=== PATIENT | male | born 1960 | race Caucasian/White ===

== ENCOUNTER 2021-10-11 11:42 | Inpatient (IN) | payer BC ==
[~2021-10-11] VITALS: Ht 175.3 cm; Wt 90.9 kg
[2021-10-11] MEDS ORDERED: CEFTRIAXONE 1 G PREMIX 50 ML IV ONE (12:00)
[2021-10-11] MEDS ORDERED: AZITHROMYCIN 500MG/250ML 250 ML IV ONE (12:00)
[2021-10-11] MEDS ORDERED: SODIUM CHLORIDE 0.9% 1000ML BAG (SEPSIS BOLUS) IV ONE (12:00)
[2021-10-11] MEDS ORDERED: VANCOMYCIN 1G PREMIX 200 ML IV ONE (12:00)
[2021-10-11 12:10] LABS: HEMATOCRIT. 37.8 % (42.0-52.0); HEMOGLOBIN. 13.1 g/dL (14.0-18.0); MEAN CORPUSCULAR HEMOGLOBIN 30.6 pg (28.0-32.0); MEAN CORPUSCULAR VOLUME 88.5 fL (80.0-94.0); MEAN PLATELET VOLUME 8.5 fl (7.4-10.4); PLATELET 162 x1000/uL (130-400); RED BLOOD CELL COUNT 4.27 mill/uL (4.7-6.1); RED CELL DISTRIBUTION WIDTH 13.1 % (11.6-14.6)
[2021-10-11 12:25] LABS: CHLORIDE 90 mEq/L (98-107)
[2021-10-11 12:32] LABS: PLATELET ESTIMATE NORMAL
[2021-10-11 12:34] LABS: ETHANOL BLOOD < 10 mg/dL
[2021-10-11 12:55] LABS: BG BASE EXCESS -5.8 mmol/L (-2.0-2.0); BG CARBOXYHEMOGLOBIN 0.6 % (0.5-1.5); BG DEOXYHEMOGLOBIN 1.6 % (0.0-5.0); BG FRACTION INSPIRED OXYGEN 36; BG HCO3 ACT 17.3 mmol/L (22.0-26.0); BG METHEMOGLOBIN 0.3 % (0.0-1.5); BG OXYGEN SATURATION 98.4 % (92.0-98.5); BG OXYHEMOGLOBIN 97.5 % (94.0-97.0); BG PCO2 27.8 mmHg (35.0-45.0); BG PH 7.413 (7.350-7.450); BG PO2 124.3 mmHg (75.0-100.0); BG TOTAL HEMOGLOBIN 12.8 g/dL (12.0-18.0); BG VENT MODE NASAL CANNULA
[2021-10-11 13:47] LABS: INR 1.2; PROTHROMBIN TIME 12.5 sec (9.6-11.0)
[2021-10-11] MEDS ORDERED: VANCOMYCIN 1G PREMIX 200 ML IV SCH (15:15)
[2021-10-11] MEDS ORDERED: AZITHROMYCIN 500MG/250ML 250 ML IV NR (15:15)
[2021-10-11] MEDS ORDERED: LORAZEPAM 2MG/ML CPJ IV ONE ×4 (16:30→22:45)
[2021-10-11] MEDS ORDERED: ACETAMINOPHEN 650MG SUPP PR ONE (17:00)
[2021-10-11] MEDS ORDERED: SODIUM CHLORIDE 0.9% 1,000 ML IV ONE (17:15)
[2021-10-11] MEDS ORDERED: DILTIAZEM HCL 5MG/ML 5ML VIAL IV ONE (18:00)
[2021-10-11] MEDS ORDERED: MIDAZOLAM HCL 2 MG/2 ML VIAL IV ONE (19:00)
[2021-10-11] MEDS ORDERED: PHENYLEPHRINE 100 MG in DEXT 5% WATER 240 ML IV STA (19:29)
[2021-10-11] MEDS ORDERED: PHENYLEPHRINE 100 MG in DEXT 5% WATER 240 ML IV NR (19:45)
[2021-10-11] MEDS ORDERED: AMIODARONE HCL IV NR (21:15)
[2021-10-11] MEDS ORDERED: WATER IV NR (21:15)
[2021-10-11] MEDS ORDERED: DEXT 5% IV NR (21:15)
[2021-10-11] MEDS ORDERED: NALOXONE HCL 0.4MG/ML VIAL IV PRN (22:00)
[2021-10-11] MEDS ORDERED: LORAZEPAM 2MG/ML CPJ IV PRN (22:00)
[2021-10-11] MEDS ORDERED: NOREPINEPHRINE 8MG/250ML PMX 250 ML IV PRN (22:00)
[2021-10-11] MEDS ORDERED: DOCUSATE SODIUM 100MG CAPSULE PO PRN (22:00)
[2021-10-11] MEDS ORDERED: HYDROCODONE/ACETAMINOPHEN 5/325MG TABLET PO PRN (22:00)
[2021-10-11] MEDS ORDERED: ENOXAPARIN 40MG/0.4ML SYR SUBCUT SCH (22:00)
[2021-10-11] MEDS ORDERED: ONDANSETRON HCL 4MG/2ML INJ IV PRN (22:00)
[2021-10-11] MEDS ORDERED: CLONIDINE 0.1MG TABLET PO PRN (22:00)
[2021-10-11] MEDS: AMIODARONE HCL 900 MG in DEXT 5% WATER 500 ML IV PRN (22:04)
[2021-10-11] MEDS ORDERED: MIDAZOLAM 100MG/100ML PMX 100 ML IV STA (23:10)
[2021-10-11] MEDS ORDERED: FENTANYL 2500MCG/250ML PMX 250 ML IV ONE (23:15)
[2021-10-11] MEDS ORDERED: FENTANYL 2500MCG/250ML PMX 250 ML IV PRN (23:30)
[2021-10-11] MEDS ORDERED: MIDAZOLAM 100MG/100ML PMX 100 ML IV PRN (23:30)
[2021-10-12] VITALS (78 sets, daily range): BP systolic 60–156; BP diastolic 27–99
[2021-10-12 00:51] LABS: BG BASE EXCESS -11.2 mmol/L (-2.0-2.0); BG CARBOXYHEMOGLOBIN 0.3 % (0.5-1.5); BG DEOXYHEMOGLOBIN 12.1 % (0.0-5.0); BG FRACTION INSPIRED OXYGEN 100; BG HCO3 ACT 16.3 mmol/L (22.0-26.0); BG METHEMOGLOBIN 0.2 % (0.0-1.5); BG OXYGEN SATURATION 87.8 % (92.0-98.5); BG OXYHEMOGLOBIN 87.4 % (94.0-97.0); BG PCO2 42.2 mmHg (35.0-45.0); BG PH 7.204 (7.350-7.450); BG PO2 61.7 mmHg (75.0-100.0); BG SAMPLE SITE RIGHT RADIAL; BG TOTAL HEMOGLOBIN 12.7 g/dL (12.0-18.0); BG TOTAL RESPIRATORY RATE 33 b/min; BG VENT MODE VENT - AC
[2021-10-12] MEDS ORDERED: NOREPINEPHRINE 32 MG in DEXT 5% WATER 218 ML IV PRN (01:00)
[2021-10-12] MEDS: NOREPINEPHRINE 32 MG in DEXT 5% WATER 218 ML IV PRN ×3 (01:13→20:30)
[2021-10-12] MEDS ORDERED: SODIUM CHLORIDE 0.9% 1000ML BAG (SEPSIS BOLUS) IV ONE (01:30)
[2021-10-12] MEDS ORDERED: SODIUM BICARBONATE 8.4% 1 MEQ/ML 50ML SYR IV SCH (01:30)
[2021-10-12] MEDS ORDERED: MIDAZOLAM HCL 100 MG in SODIUM CHLORIDE 0.9% 80 ML IV PRN (01:30)
[2021-10-12] MEDS ORDERED: MIDAZOLAM 100MG/100ML PREMIX IV PRN (02:00)
[2021-10-12] MEDS: VASOPRESSIN 20 UNITS in SODIUM CHLORIDE 0.9% 100 ML IV PRN ×3 (02:02→19:39)
[2021-10-12] MEDS: MORPHINE SULFATE 2 MG/ML CPJ (NOT FOR IM USE) IV PRN (03:27)
[2021-10-12] MEDS: PHENYLEPHRINE 100 MG in DEXT 5% WATER 240 ML IV PRN ×4 (03:47→21:55)
[2021-10-12] MEDS ORDERED: PIPERACILLIN/TAZOBACTAM 3.375 G in DEXTROSE 5% WATER 50 ML IV SCH (04:00)
[2021-10-12 04:11] LABS: CREATINE KINASE MB FRACTION 60.9 ng/mL (0.5-3.6); PHOSPHORUS 3.8 mg/dL (2.5-4.9)
[2021-10-12 05:14] LABS: HEMATOCRIT. 35.4 % (42.0-52.0); HEMOGLOBIN. 11.9 g/dL (14.0-18.0); MEAN CORPUSCULAR HEMOGLOBIN 30.7 pg (28.0-32.0); MEAN CORPUSCULAR VOLUME 90.8 fL (80.0-94.0); MEAN PLATELET VOLUME 8.9 fl (7.4-10.4); PLATELET 160 x1000/uL (130-400); RED BLOOD CELL COUNT 3.89 mill/uL (4.7-6.1); RED CELL DISTRIBUTION WIDTH 13.1 % (11.6-14.6)
[2021-10-12] MEDS: PIPERACILLIN/TAZOBACTAM 3.375 G in DEXTROSE 5% WATER 50 ML IV SCH ×3 (06:05→22:00)
[2021-10-12] MEDS: FERROUS SULFATE 325MG TABLET PO SCH (06:45)
[2021-10-12] MEDS ORDERED: LEVO50TA8 MT (07:27)
[2021-10-12] MEDS ORDERED: IXEK80AU SQ (07:27)
[2021-10-12 08:41] LABS: BG BASE EXCESS -6.3 mmol/L (-2.0-2.0); BG CARBOXYHEMOGLOBIN 0.3 % (0.5-1.5); BG DEOXYHEMOGLOBIN 3.7 % (0.0-5.0); BG FRACTION INSPIRED OXYGEN 100; BG HCO3 ACT 19.1 mmol/L (22.0-26.0); BG METHEMOGLOBIN 0.1 % (0.0-1.5); BG OXYGEN SATURATION 96.3 % (92.0-98.5); BG OXYHEMOGLOBIN 95.9 % (94.0-97.0); BG PCO2 37.4 mmHg (35.0-45.0); BG PH 7.325 (7.350-7.450); BG PO2 89.1 mmHg (75.0-100.0); BG SAMPLE SITE RIGHT RADIAL; BG TOTAL HEMOGLOBIN 12.5 g/dL (12.0-18.0); BG TOTAL RESPIRATORY RATE 33 b/min; BG VENT MODE VENT - AC
[2021-10-12] MEDS: ASPIRIN 81MG EC TABLET PO SCH (09:18)
[2021-10-12] MEDS: THIAMINE HCL 100MG TABLET PO SCH (09:18)
[2021-10-12] MEDS ORDERED: IPRATROPIUM BROMIDE (0.02%) 0.5MG/2.5ML NEB HHN PRN (10:15)
[2021-10-12 10:18] LABS: PLATELET ESTIMATE NORMAL
[2021-10-12] MEDS: SODIUM BICARBONATE 100 MEQ in SODIUM CHLORIDE 0.45% 1,000 ML IV SCH (11:30)
[2021-10-12] MEDS: IPRATROPIUM BROMIDE (0.02%) 0.5MG/2.5ML NEB HHN SCH ×2 (11:31→18:00)
[2021-10-12] MEDS ORDERED: LIDOCAINE HCL/PF 1% 10 MG/ML 5ML VIAL ONE (11:33)
[2021-10-12] MEDS ORDERED: MAGNESIUM 2 G PREMIX 50 ML IV NR (12:30)
[2021-10-12] MEDS: DEXAMETHASONE 10 MG/ML VIAL IV SCH (12:56)
[2021-10-12] MEDS: DOXYCYCLINE 100 MG in DEXT 5% WATER 100 ML IV SCH (13:00)
[2021-10-12] MEDS: AMIODARONE HCL 900 MG in DEXT 5% WATER 500 ML IV PRN (21:55)
[2021-10-12] MEDS ORDERED: VANCOMYCIN 750 MG in DEXT 5% WATER 250 ML IV NR (22:00)
[2021-10-13] VITALS (91 sets, daily range): BP systolic 98–160; BP diastolic 52–108
[2021-10-13] MEDS: DOXYCYCLINE 100 MG in DEXT 5% WATER 100 ML IV SCH ×2 (02:05→18:25)
[2021-10-13] MEDS: PHENYLEPHRINE 100 MG in DEXT 5% WATER 240 ML IV PRN ×4 (04:36→22:03)
[2021-10-13] MEDS: VASOPRESSIN 20 UNITS in SODIUM CHLORIDE 0.9% 100 ML IV PRN ×3 (05:27→22:03)
[2021-10-13] MEDS: PIPERACILLIN/TAZOBACTAM 3.375 G in DEXTROSE 5% WATER 50 ML IV SCH (06:30)
[2021-10-13] MEDS: FERROUS SULFATE 325MG TABLET PO SCH (07:00)
[2021-10-13] MEDS ORDERED: SODIUM POLYSTYRENE SULFONATE 15 G/60 ML BOT PO NR (07:30)
[2021-10-13] MEDS: NOREPINEPHRINE 32 MG in DEXT 5% WATER 218 ML IV PRN (07:49)
[2021-10-13] MEDS: SODIUM BICARBONATE 100 MEQ in SODIUM CHLORIDE 0.45% 1,000 ML IV SCH (07:49)
[2021-10-13] MEDS: DEXAMETHASONE 10 MG/ML VIAL IV SCH ×2 (08:16→20:28)
[2021-10-13 08:30] LABS: BG BASE EXCESS -17.9 mmol/L (-2.0-2.0); BG CARBOXYHEMOGLOBIN 0.3 % (0.5-1.5); BG DEOXYHEMOGLOBIN 1.7 % (0.0-5.0); BG HCO3 ACT 10.6 mmol/L (22.0-26.0); BG OXYGEN SATURATION 98.3 % (92.0-98.5); BG PCO2 33.9 mmHg (35.0-45.0); BG PH 7.111 (7.350-7.450); BG PO2 143.1 mmHg (75.0-100.0); BG SAMPLE SITE RIGHT RADIAL; BG TOTAL HEMOGLOBIN 13.3 g/dL (12.0-18.0); BG VENT MODE VENT - AC
[2021-10-13] MEDS ORDERED: SODIUM BICARBONATE 8.4% 1 MEQ/ML 50ML SYR IV NR ×3 (08:45→14:15)
[2021-10-13 09:09] LABS: HEMATOCRIT. 39.5 % (42.0-52.0); HEMOGLOBIN. 12.6 g/dL (14.0-18.0); MEAN CORPUSCULAR HEMOGLOBIN 29.8 pg (28.0-32.0); MEAN CORPUSCULAR VOLUME 93.3 fL (80.0-94.0); MEAN PLATELET VOLUME 9.4 fl (7.4-10.4); RED BLOOD CELL COUNT 4.23 mill/uL (4.7-6.1); RED CELL DISTRIBUTION WIDTH 14.1 % (11.6-14.6)
[2021-10-13 09:22] LABS: PLATELET 119 x1000/uL (130-400)
[2021-10-13] MEDS: IPRATROPIUM BROMIDE (0.02%) 0.5MG/2.5ML NEB HHN SCH ×4 (09:26→18:00)
[2021-10-13 10:18] LABS: PLATELET ESTIMATE SLIGHTLY DECREASED
[2021-10-13] MEDS: SODIUM BICARBONATE 150 MEQ in DEXTROSE 5% WATER 1,000 ML IV SCH (10:39)
[2021-10-13] MEDS: ASPIRIN 81MG EC TABLET PO SCH (10:40)
[2021-10-13] MEDS: FAMOTIDINE 20MG/2ML VIAL IV SCH (10:40)
[2021-10-13] MEDS: THIAMINE HCL 100MG TABLET PO SCH (10:41)
[2021-10-13] MEDS ORDERED: VANCOMYCIN 750 MG in DEXT 5% WATER 250 ML IV SCH (11:00)
[2021-10-13 13:15] LABS: BG BASE EXCESS -13.2 mmol/L (-2.0-2.0); BG CARBOXYHEMOGLOBIN 0.5 % (0.5-1.5); BG DEOXYHEMOGLOBIN 2.8 % (0.0-5.0); BG METHEMOGLOBIN 0.4 % (0.0-1.5); BG OXYGEN SATURATION 97.2 % (92.0-98.5); BG OXYHEMOGLOBIN 96.3 % (94.0-97.0); BG PH 7.196 (7.350-7.450); BG PO2 111.8 mmHg (75.0-100.0); BG SAMPLE SITE RIGHT RADIAL; BG TOTAL HEMOGLOBIN 13.2 g/dL (12.0-18.0); BG VENT MODE VENT - AC
[2021-10-13] MEDS: AMIODARONE HCL 200 MG TABLET NG SCH ×2 (13:46→20:28)
[2021-10-13] MEDS ORDERED: AZITHROMYCIN 500 MG in DEXT 5% WATER 250 ML IV SCH (14:00)
[2021-10-13] MEDS ORDERED: ENOXAPARIN 30MG/0.3ML SYR SUBCUT SCH (14:00)
[2021-10-13] MEDS ORDERED: INSULIN REGULAR (HUMULIN R) 300UNITS/3ML VIAL IV NR (14:15)
[2021-10-13] MEDS ORDERED: DEXTROSE 50% WATER 50ML SYRINGE IV NR (14:15)
[2021-10-13] MEDS: ASCORBIC ACID 500 MG TABLET PO SCH ×2 (14:27→20:28)
[2021-10-13] MEDS: CHOLECALCIFEROL (D3) 1000 UNIT TABLET PO SCH (14:28)
[2021-10-13] MEDS: ZINC SULFATE 220 MG ( 50 ) CAPSULE PO SCH (14:28)
[2021-10-13] MEDS ORDERED: LIDOCAINE HCL/PF 1% 10 MG/ML 5ML VIAL ONE (14:30)
[2021-10-13] MEDS: ENOXAPARIN 100MG/ML SYR SUBCUT SCH (14:58)
[2021-10-13] MEDS ORDERED: CEFEPIME 1,000 MG in DEXTROSE 5% WATER 50 ML IV SCH (15:00)
[2021-10-13] MEDS ORDERED: CALCIUM GLUCONATE 1GM PREMIX 50 ML IV NR (15:30)
[2021-10-13 15:36] LABS: CLARITY URINE TURBID (CLEAR); COLOR URINE YELLOW (YELLOW); KETONES URINE TRACE (NEGATIVE); LEUKOCYTE ESTERASE URINE NEGATIVE (NEGATIVE); NITRITE URINE NEGATIVE (NEGATIVE); OCCULT BLOOD URINE 3+ (NEGATIVE); PROTEIN URINE 2+ (NEGATIVE); SPECIFIC GRAVITY URINE 1.012 (1.005-1.030); UROBILINOGEN URINE 0.2 E.U./dL (0.2-1.0)
[2021-10-13 15:50] LABS: *AMPHETAMINES SCREEN URINE NEGATIVE (NEGATIVE); *BARBITURATES SCREEN URINE NEGATIVE (NEGATIVE); *BENZODIAZEPINES SCREEN URINE PRESUMTIVE POSITIVE (NEGATIVE); *COCAINE SCREEN URINE NEGATIVE (NEGATIVE); CANNABINOID URINE SCREEN NEGATIVE (NEGATIVE); METHADONE URINE SCREEN NEGATIVE (NEGATIVE); OPIATES URINE SCREEN PRESUMTIVE POSITIVE (NEGATIVE); PHENCYCLIDINE URINE SCREEN NEGATIVE (NEGATIVE)
[2021-10-13 17:49] LABS: HEPATITIS B SURFACE ANTIGEN NEGATIVE
[2021-10-13] MEDS: MEROPENEM 1,000 MG in SODIUM CHLORIDE 0.9% 100 ML IV SCH (17:56)
[2021-10-13] MEDS ORDERED: VANCOMYCIN 1GM PMX (XELLIA) 200 ML IV NR (20:00)
[2021-10-13] MEDS ORDERED: PIPERACILLIN/TAZOBACTAM 3.375 G in DEXTROSE 5% WATER 50 ML IV SCH (21:00)
[2021-10-14] VITALS (95 sets, daily range): BP systolic 72–144; BP diastolic 29–110
[2021-10-14] MEDS: PHENYLEPHRINE 100 MG in DEXT 5% WATER 240 ML IV PRN ×2 (04:32→21:13)
[2021-10-14] MEDS: SODIUM BICARBONATE 150 MEQ in DEXTROSE 5% WATER 1,000 ML IV SCH (05:02)
[2021-10-14 05:27] LABS: HEMATOCRIT. 34.8 % (42.0-52.0); HEMOGLOBIN. 11.6 g/dL (14.0-18.0); MEAN CORPUSCULAR HEMOGLOBIN 29.8 pg (28.0-32.0); MEAN CORPUSCULAR VOLUME 89.7 fL (80.0-94.0); MEAN PLATELET VOLUME 9.2 fl (7.4-10.4); PLATELET 96 x1000/uL (130-400); RED BLOOD CELL COUNT 3.89 mill/uL (4.7-6.1); RED CELL DISTRIBUTION WIDTH 13.9 % (11.6-14.6)
[2021-10-14] MEDS: DOXYCYCLINE 100 MG in DEXT 5% WATER 100 ML IV SCH ×2 (06:11→17:22)
[2021-10-14] MEDS: FERROUS SULFATE 325MG TABLET PO SCH (06:11)
[2021-10-14] MEDS: IPRATROPIUM BROMIDE (0.02%) 0.5MG/2.5ML NEB HHN SCH ×4 (07:55→20:13)
[2021-10-14] MEDS: THIAMINE HCL 100MG TABLET PO SCH (08:57)
[2021-10-14] MEDS: DEXAMETHASONE 10 MG/ML VIAL IV SCH ×2 (08:57→21:14)
[2021-10-14] MEDS: FAMOTIDINE 20MG/2ML VIAL IV SCH (08:57)
[2021-10-14] MEDS: ZINC SULFATE 220 MG ( 50 ) CAPSULE PO SCH (08:57)
[2021-10-14] MEDS: ASCORBIC ACID 500 MG TABLET PO SCH ×2 (08:58→21:14)
[2021-10-14] MEDS: AMIODARONE HCL 200 MG TABLET NG SCH ×2 (08:58→21:13)
[2021-10-14] MEDS: ASPIRIN 81MG EC TABLET PO SCH (08:58)
[2021-10-14 09:10] LABS: PLATELET ESTIMATE DECREASED
[2021-10-14 09:12] LABS: BG BASE EXCESS 0.5 mmol/L (-2.0-2.0); BG CARBOXYHEMOGLOBIN 0.3 % (0.5-1.5); BG DEOXYHEMOGLOBIN 0.9 % (0.0-5.0); BG FRACTION INSPIRED OXYGEN 70; BG HCO3 ACT 22.5 mmol/L (22.0-26.0); BG METHEMOGLOBIN 0.4 % (0.0-1.5); BG OXYGEN SATURATION 99.1 % (92.0-98.5); BG OXYHEMOGLOBIN 98.4 % (94.0-97.0); BG PCO2 28.5 mmHg (35.0-45.0); BG PH 7.516 (7.350-7.450); BG PO2 203.6 mmHg (75.0-100.0); BG SAMPLE SITE RIGHT RADIAL; BG TOTAL HEMOGLOBIN 11.9 g/dL (12.0-18.0); BG VENT MODE VENT - AC
[2021-10-14] MEDS: CHOLECALCIFEROL (D3) 1000 UNIT TABLET PO SCH (09:47)
[2021-10-14] MEDS: ENOXAPARIN 100MG/ML SYR SUBCUT SCH (14:00)
[2021-10-14 14:25] LABS: CREATINE KINASE > 14000 IU/L (39-308)
[2021-10-14] MEDS: MEROPENEM 1,000 MG in SODIUM CHLORIDE 0.9% 100 ML IV SCH (15:19)
[2021-10-14] MEDS: MORPHINE SULFATE 2 MG/ML CPJ (NOT FOR IM USE) IV PRN (15:33)
[2021-10-14] MEDS ORDERED: DIGOXIN 500MCG/2ML AMP IV NR ×2 (16:30→18:00)
[2021-10-15] VITALS (93 sets, daily range): BP systolic 98–153; BP diastolic 49–107
[2021-10-15] MEDS: IPRATROPIUM BROMIDE (0.02%) 0.5MG/2.5ML NEB HHN SCH ×4 (00:12→19:50)
[2021-10-15 05:03] LABS: HEMATOCRIT. 32.1 % (42.0-52.0); HEMOGLOBIN. 10.7 g/dL (14.0-18.0); MEAN CORPUSCULAR VOLUME 90.1 fL (80.0-94.0); MEAN PLATELET VOLUME 9.9 fl (7.4-10.4); PLATELET 99 x1000/uL (130-400); RED BLOOD CELL COUNT 3.56 mill/uL (4.7-6.1); RED CELL DISTRIBUTION WIDTH 13.9 % (11.6-14.6)
[2021-10-15] MEDS: DOXYCYCLINE 100 MG in DEXT 5% WATER 100 ML IV SCH ×2 (05:43→17:34)
[2021-10-15] MEDS: FERROUS SULFATE 325MG TABLET PO SCH (05:43)
[2021-10-15] MEDS: ZINC SULFATE 220 MG ( 50 ) CAPSULE PO SCH (08:47)
[2021-10-15] MEDS: DEXAMETHASONE 10 MG/ML VIAL IV SCH ×2 (08:47→21:19)
[2021-10-15] MEDS: FAMOTIDINE 20MG/2ML VIAL IV SCH (08:47)
[2021-10-15] MEDS: AMIODARONE HCL 200 MG TABLET NG SCH ×2 (08:47→21:19)
[2021-10-15] MEDS: ASCORBIC ACID 500 MG TABLET PO SCH ×2 (08:47→21:19)
[2021-10-15] MEDS: THIAMINE HCL 100MG TABLET PO SCH (08:47)
[2021-10-15] MEDS: ASPIRIN 81MG EC TABLET PO SCH (08:47)
[2021-10-15] MEDS: CHOLECALCIFEROL (D3) 1000 UNIT TABLET PO SCH (08:50)
[2021-10-15 09:25] LABS: NUCLEATED RED BLOOD CELLS 5 /100 WBC
[2021-10-15 09:26] LABS: PLATELET ESTIMATE DECREASED
[2021-10-15] MEDS ORDERED: VANCOMYCIN 750 MG in DEXT 5% WATER 250 ML IV SCH (12:00)
[2021-10-15 12:39] LABS: BG BASE EXCESS 2.5 mmol/L (-2.0-2.0); BG CARBOXYHEMOGLOBIN 0.3 % (0.5-1.5); BG DEOXYHEMOGLOBIN 22.6 % (0.0-5.0); BG FRACTION INSPIRED OXYGEN 50; BG HCO3 ACT 25.1 mmol/L (22.0-26.0); BG METHEMOGLOBIN 0.3 % (0.0-1.5); BG OXYGEN SATURATION 77.3 % (92.0-98.5); BG OXYHEMOGLOBIN 76.8 % (94.0-97.0); BG PH 7.513 (7.350-7.450); BG PO2 43.1 mmHg (75.0-100.0); BG SAMPLE SITE LEFT RADIAL; BG VENT MODE VENT - AC
[2021-10-15] MEDS: PROPOFOL 10MG/ML 100ML 100 ML IV PRN ×2 (13:04→22:59)
[2021-10-15] MEDS: ENOXAPARIN 100MG/ML SYR SUBCUT SCH (13:44)
[2021-10-15] MEDS: MEROPENEM 1,000 MG in SODIUM CHLORIDE 0.9% 100 ML IV SCH (15:18)
[2021-10-15] MEDS: PHENYLEPHRINE 100 MG in DEXT 5% WATER 240 ML IV PRN (22:57)
[2021-10-16] VITALS (96 sets, daily range): BP systolic 87–143; BP diastolic 46–91
[2021-10-16] MEDS: IPRATROPIUM BROMIDE (0.02%) 0.5MG/2.5ML NEB HHN SCH ×4 (01:31→18:00)
[2021-10-16 05:36] LABS: HEMATOCRIT. 30.7 % (42.0-52.0); HEMOGLOBIN. 10.1 g/dL (14.0-18.0); MEAN CORPUSCULAR HEMOGLOBIN 30.1 pg (28.0-32.0); MEAN CORPUSCULAR VOLUME 91.5 fL (80.0-94.0); MEAN PLATELET VOLUME 11.1 fl (7.4-10.4); PLATELET 136 x1000/uL (130-400); RED BLOOD CELL COUNT 3.35 mill/uL (4.7-6.1)
[2021-10-16] MEDS: DOXYCYCLINE 100 MG in DEXT 5% WATER 100 ML IV SCH ×2 (06:00→17:31)
[2021-10-16] MEDS: FERROUS SULFATE 325MG TABLET PO SCH (06:00)
[2021-10-16 08:29] LABS: BG BASE EXCESS 0.1 mmol/L (-2.0-2.0); BG CARBOXYHEMOGLOBIN 0.3 % (0.5-1.5); BG FRACTION INSPIRED OXYGEN 60; BG HCO3 ACT 22.9 mmol/L (22.0-26.0); BG METHEMOGLOBIN 0.3 % (0.0-1.5); BG OXYHEMOGLOBIN 97.4 % (94.0-97.0); BG PCO2 30.9 mmHg (35.0-45.0); BG PH 7.487 (7.350-7.450); BG PO2 113.9 mmHg (75.0-100.0); BG SAMPLE SITE RIGHT RADIAL; BG TOTAL HEMOGLOBIN 11.2 g/dL (12.0-18.0); BG VENT MODE VENT - AC
[2021-10-16] MEDS: DEXAMETHASONE 10 MG/ML VIAL IV SCH ×2 (08:59→20:58)
[2021-10-16] MEDS: ASPIRIN 81MG EC TABLET PO SCH (08:59)
[2021-10-16] MEDS: FAMOTIDINE 20MG/2ML VIAL IV SCH (08:59)
[2021-10-16] MEDS: ZINC SULFATE 220 MG ( 50 ) CAPSULE PO SCH (08:59)
[2021-10-16] MEDS: THIAMINE HCL 100MG TABLET PO SCH (08:59)
[2021-10-16] MEDS: CHOLECALCIFEROL (D3) 1000 UNIT TABLET PO SCH (08:59)
[2021-10-16] MEDS: AMIODARONE HCL 200 MG TABLET NG SCH (09:00)
[2021-10-16] MEDS: ASCORBIC ACID 500 MG TABLET PO SCH ×2 (09:00→20:58)
[2021-10-16 09:13] LABS: NUCLEATED RED BLOOD CELLS 7 /100 WBC
[2021-10-16 09:14] LABS: PLATELET ESTIMATE NORMAL
[2021-10-16] MEDS: PROPOFOL 10MG/ML 100ML 100 ML IV PRN ×2 (10:59→20:57)
[2021-10-16] MEDS: ENOXAPARIN 100MG/ML SYR SUBCUT SCH (13:32)
[2021-10-16] MEDS: MEROPENEM 1,000 MG in SODIUM CHLORIDE 0.9% 100 ML IV SCH (15:31)
[2021-10-17] VITALS (89 sets, daily range): BP systolic 96–157; BP diastolic 21–130
[2021-10-17] MEDS: IPRATROPIUM BROMIDE (0.02%) 0.5MG/2.5ML NEB HHN SCH ×4 (00:17→21:47)
[2021-10-17 05:44] LABS: HEMATOCRIT. 31.3 % (42.0-52.0); HEMOGLOBIN. 10.4 g/dL (14.0-18.0); MEAN CORPUSCULAR HEMOGLOBIN 30.9 pg (28.0-32.0); MEAN CORPUSCULAR VOLUME 92.9 fL (80.0-94.0); MEAN PLATELET VOLUME 10.9 fl (7.4-10.4); PLATELET 138 x1000/uL (130-400); RED BLOOD CELL COUNT 3.37 mill/uL (4.7-6.1); RED CELL DISTRIBUTION WIDTH 14.6 % (11.6-14.6)
[2021-10-17] MEDS: DOXYCYCLINE 100 MG in DEXT 5% WATER 100 ML IV SCH ×2 (06:05→17:10)
[2021-10-17] MEDS: FERROUS SULFATE 325MG TABLET PO SCH (06:05)
[2021-10-17 06:18] LABS: CHLORIDE 101 mEq/L (98-107)
[2021-10-17 08:00] LABS: BG BASE EXCESS -5.1 mmol/L (-2.0-2.0); BG CARBOXYHEMOGLOBIN 0.3 % (0.5-1.5); BG DEOXYHEMOGLOBIN 1.4 % (0.0-5.0); BG FRACTION INSPIRED OXYGEN 40; BG HCO3 ACT 18.3 mmol/L (22.0-26.0); BG OXYGEN SATURATION 98.6 % (92.0-98.5); BG OXYHEMOGLOBIN 98.3 % (94.0-97.0); BG PCO2 29.2 mmHg (35.0-45.0); BG PH 7.416 (7.350-7.450); BG PO2 146.4 mmHg (75.0-100.0); BG SAMPLE SITE LEFT RADIAL; BG TOTAL HEMOGLOBIN 11.4 g/dL (12.0-18.0); BG VENT MODE VENT - AC
[2021-10-17] MEDS ORDERED: INSULIN LISPRO 100 UNITS/ML SUBCUT SCH ×2 (08:00→12:00)
[2021-10-17] MEDS: PROPOFOL 10MG/ML 100ML 100 ML IV PRN ×3 (08:07→21:29)
[2021-10-17] MEDS: FAMOTIDINE 20MG/2ML VIAL IV SCH (08:08)
[2021-10-17] MEDS: ASPIRIN 81MG EC TABLET PO SCH (08:08)
[2021-10-17] MEDS: THIAMINE HCL 100MG TABLET PO SCH (08:08)
[2021-10-17] MEDS: CHOLECALCIFEROL (D3) 1000 UNIT TABLET PO SCH (08:08)
[2021-10-17] MEDS: ZINC SULFATE 220 MG ( 50 ) CAPSULE PO SCH (08:08)
[2021-10-17] MEDS: ASCORBIC ACID 500 MG TABLET PO SCH ×2 (08:08→21:24)
[2021-10-17] MEDS: DEXAMETHASONE 10 MG/ML VIAL IV SCH ×2 (08:09→21:24)
[2021-10-17 08:12] LABS: PLATELET ESTIMATE NORMAL
[2021-10-17 09:07] LABS: ANTI-DNA DOUBLE STRANDED QUANT 1 IU/mL (0-9)
[2021-10-17] MEDS ORDERED: PROPOFOL 10MG/ML 100ML 100 ML IV PRN (10:15)
[2021-10-17] MEDS ORDERED: DEXTROSE 50% WATER 50ML SYRINGE IV PRN (11:15)
[2021-10-17] MEDS: BLOOD SUGAR DIAGNOSTIC STRIP TEST SCH ×2 (11:18→17:11)
[2021-10-17] MEDS ORDERED: INSULIN GLARGINE 100 UNITS/ML SUBCUT SCH (11:30)
[2021-10-17] MEDS: INSULIN LISPRO 100 UNITS/ML SUBCUT SCH ×2 (12:00→17:51)
[2021-10-17] MEDS: ENOXAPARIN 100MG/ML SYR SUBCUT SCH (14:16)
[2021-10-17] MEDS: MEROPENEM 1,000 MG in SODIUM CHLORIDE 0.9% 100 ML IV SCH (15:10)
[2021-10-17] MEDS ORDERED: INSULIN LISPRO 100 UNITS/ML SUBCUT NR ×2 (18:00)
[2021-10-17 19:09] LABS: ANTI-CARDIOLIPIN AB IGA < 9 APL U/mL (0-11); ANTI-CARDIOLIPIN AB IGG < 9 GPL U/mL (0-14); ANTI-CARDIOLIPIN AB IGM 13 MPL U/mL (0-12)
[2021-10-18] VITALS (93 sets, daily range): BP systolic 96–145; BP diastolic 48–119
[2021-10-18] MEDS: BLOOD SUGAR DIAGNOSTIC STRIP TEST SCH ×5 (00:28→23:42)
[2021-10-18] MEDS: INSULIN LISPRO 100 UNITS/ML SUBCUT SCH ×5 (00:29→23:47)
[2021-10-18] MEDS: IPRATROPIUM BROMIDE (0.02%) 0.5MG/2.5ML NEB HHN SCH ×4 (01:42→20:28)
[2021-10-18 05:46] LABS: HEMATOCRIT. 32.3 % (42.0-52.0); HEMOGLOBIN. 10.4 g/dL (14.0-18.0); MEAN CORPUSCULAR HEMOGLOBIN 29.8 pg (28.0-32.0); MEAN CORPUSCULAR VOLUME 92.8 fL (80.0-94.0); MEAN PLATELET VOLUME 10.6 fl (7.4-10.4); PLATELET 107 x1000/uL (130-400); RED BLOOD CELL COUNT 3.48 mill/uL (4.7-6.1); RED CELL DISTRIBUTION WIDTH 14.3 % (11.6-14.6)
[2021-10-18] MEDS: FERROUS SULFATE 325MG TABLET PO SCH (06:07)
[2021-10-18] MEDS: DOXYCYCLINE 100 MG in DEXT 5% WATER 100 ML IV SCH ×2 (07:26→17:17)
[2021-10-18] MEDS: PROPOFOL 10MG/ML 100ML 100 ML IV PRN ×2 (08:03→14:49)
[2021-10-18] MEDS: FAMOTIDINE 20MG/2ML VIAL IV SCH (08:03)
[2021-10-18] MEDS: CHOLECALCIFEROL (D3) 1000 UNIT TABLET PO SCH (08:03)
[2021-10-18] MEDS: THIAMINE HCL 100MG TABLET PO SCH (08:03)
[2021-10-18] MEDS: DEXAMETHASONE 10 MG/ML VIAL IV SCH (08:03)
[2021-10-18] MEDS: ZINC SULFATE 220 MG ( 50 ) CAPSULE PO SCH (08:03)
[2021-10-18] MEDS: ASPIRIN 81MG EC TABLET PO SCH (08:04)
[2021-10-18] MEDS: ASCORBIC ACID 500 MG TABLET PO SCH ×2 (08:05→21:34)
[2021-10-18 08:58] LABS: BG BASE EXCESS -4.5 mmol/L (-2.0-2.0); BG CARBOXYHEMOGLOBIN 0.1 % (0.5-1.5); BG DEOXYHEMOGLOBIN 1.8 % (0.0-5.0); BG FRACTION INSPIRED OXYGEN 40; BG HCO3 ACT 19.1 mmol/L (22.0-26.0); BG METHEMOGLOBIN 0.2 % (0.0-1.5); BG OXYGEN SATURATION 98.2 % (92.0-98.5); BG OXYHEMOGLOBIN 97.9 % (94.0-97.0); BG PCO2 30.4 mmHg (35.0-45.0); BG PH 7.416 (7.350-7.450); BG SAMPLE SITE RIGHT RADIAL; BG TOTAL HEMOGLOBIN 11.1 g/dL (12.0-18.0); BG VENT MODE VENT - AC
[2021-10-18] MEDS ORDERED: INSULIN LISPRO 100 UNITS/ML SUBCUT SCH (09:00)
[2021-10-18] MEDS ORDERED: PROPOFOL 10MG/ML 100ML 100 ML IV PRN (09:45)
[2021-10-18] MEDS ORDERED: LORAZEPAM 2MG/ML CPJ IV PRN (13:15)
[2021-10-18 13:30] LABS: NUCLEATED RED BLOOD CELLS 3 /100 WBC
[2021-10-18 13:32] LABS: PLATELET ESTIMATE DECREASED
[2021-10-18] MEDS: ENOXAPARIN 100MG/ML SYR SUBCUT SCH (14:52)
[2021-10-18] MEDS: MEROPENEM 1,000 MG in SODIUM CHLORIDE 0.9% 100 ML IV SCH (15:51)
[2021-10-18] MEDS: QUETIAPINE FUMARATE 50MG TABLET PO SCH (17:17)
[2021-10-18] MEDS ORDERED: VANCOMYCIN 750 MG in DEXT 5% WATER 250 ML IV NR (18:00)
[2021-10-19] VITALS (90 sets, daily range): BP systolic 104–151; BP diastolic 59–101
[2021-10-19] MEDS: PROPOFOL 10MG/ML 100ML 100 ML IV PRN (02:15)
[2021-10-19] MEDS: IPRATROPIUM BROMIDE (0.02%) 0.5MG/2.5ML NEB HHN SCH ×3 (02:43→14:30)
[2021-10-19] MEDS: INSULIN LISPRO 100 UNITS/ML SUBCUT SCH ×3 (07:04→18:03)
[2021-10-19 07:52] LABS: BG CARBOXYHEMOGLOBIN 0.3 % (0.5-1.5); BG DEOXYHEMOGLOBIN 2.4 % (0.0-5.0); BG HCO3 ACT 17.2 mmol/L (22.0-26.0); BG METHEMOGLOBIN 0.3 % (0.0-1.5); BG OXYGEN SATURATION 97.6 % (92.0-98.5); BG PCO2 30.7 mmHg (35.0-45.0); BG PH 7.367 (7.350-7.450); BG SAMPLE SITE RIGHT RADIAL; BG TOTAL HEMOGLOBIN 11.6 g/dL (12.0-18.0); BG VENT MODE VENT - AC
[2021-10-19] MEDS: FAMOTIDINE 20MG/2ML VIAL IV SCH (08:39)
[2021-10-19] MEDS: ASCORBIC ACID 500 MG TABLET PO SCH ×2 (08:39→21:36)
[2021-10-19] MEDS: FERROUS SULFATE 325MG TABLET PO SCH (08:39)
[2021-10-19] MEDS: DEXAMETHASONE 10 MG/ML VIAL IV SCH (08:39)
[2021-10-19] MEDS: QUETIAPINE FUMARATE 50MG TABLET PO SCH ×2 (08:39→18:02)
[2021-10-19] MEDS: THIAMINE HCL 100MG TABLET PO SCH (08:39)
[2021-10-19] MEDS: CHOLECALCIFEROL (D3) 1000 UNIT TABLET PO SCH (08:39)
[2021-10-19] MEDS: ASPIRIN 81MG EC TABLET PO SCH (08:39)
[2021-10-19] MEDS: ZINC SULFATE 220 MG ( 50 ) CAPSULE PO SCH (08:39)
[2021-10-19] MEDS ORDERED: PROPOFOL 10MG/ML 100ML 100 ML IV PRN (11:15)
[2021-10-19 12:24] LABS: HEMATOCRIT. 34.4 % (42.0-52.0); MEAN CORPUSCULAR HEMOGLOBIN 29.9 pg (28.0-32.0); MEAN CORPUSCULAR VOLUME 93.8 fL (80.0-94.0); PLATELET 114 x1000/uL (130-400); RED BLOOD CELL COUNT 3.67 mill/uL (4.7-6.1); RED CELL DISTRIBUTION WIDTH 14.6 % (11.6-14.6)
[2021-10-19] MEDS: BLOOD SUGAR DIAGNOSTIC STRIP TEST SCH ×2 (12:25→17:58)
[2021-10-19 12:30] LABS: CHLORIDE 103 mEq/L (98-107)
[2021-10-19 13:07] LABS: QFT MITOGEN VALUE 0.08 IU/mL (.); QFT TB GOLD PLUS Indeterminate (Negative)
[2021-10-19 13:09] LABS: PLATELET ESTIMATE SLIGHTLY DECREASED
[2021-10-19 13:27] LABS: BG CARBOXYHEMOGLOBIN 0.3 % (0.5-1.5); BG DEOXYHEMOGLOBIN 3.9 % (0.0-5.0); BG FRACTION INSPIRED OXYGEN 40; BG HCO3 ACT 17.8 mmol/L (22.0-26.0); BG METHEMOGLOBIN 0.4 % (0.0-1.5); BG OXYGEN SATURATION 96.1 % (92.0-98.5); BG OXYHEMOGLOBIN 95.4 % (94.0-97.0); BG PCO2 29.6 mmHg (35.0-45.0); BG PH 7.396 (7.350-7.450); BG PO2 92.3 mmHg (75.0-100.0); BG SAMPLE SITE RIGHT RADIAL; BG TOTAL HEMOGLOBIN 11.4 g/dL (12.0-18.0); BG TOTAL RESPIRATORY RATE 20 b/min; BG VENT MODE VENT - CPAP
[2021-10-19] MEDS: ENOXAPARIN 100MG/ML SYR SUBCUT SCH (14:33)
[2021-10-19] MEDS: MEROPENEM 1,000 MG in SODIUM CHLORIDE 0.9% 100 ML IV SCH (14:33)
[2021-10-19] MEDS ORDERED: IPRATROPIUM/ALBUTEROL 0.5-3(2.5)MG/3ML NEB HHN PRN (15:00)
[2021-10-19 15:10] LABS: ACTIN (SMOOTH MUSCLE) ANTIBODY 5 Units (0-19); ATYPICAL P-ANCA <1:20 titer (Neg:<1:20); CYTOPLASMIC C-ANCA <1:20 titer (Neg:<1:20); PERINUCLEAR P-ANCA <1:20 titer (Neg:<1:20)
[2021-10-19] MEDS ORDERED: IPRATROPIUM/ALBUTEROL 0.5-3(2.5)MG/3ML NEB HHN SCH (16:00)
[2021-10-19 17:07] LABS: HLA CLASS 1 ANTIBODY Negative (Negative); IIb/IIIa ANTIBODY Negative (Negative); Ib/IX ANTIBODY Negative (Negative)
[2021-10-19] MEDS: DOXYCYCLINE 100 MG in DEXT 5% WATER 100 ML IV SCH (18:02)
[2021-10-19] MEDS ORDERED: ALBUTEROL 6.7GM HFA INHALER INH PRN (20:45)
[2021-10-19] MEDS ORDERED: ACETYLCYSTEINE 100MG/ML 10% VIAL 4ML INH SCH (22:00)
[2021-10-20] VITALS (87 sets, daily range): BP systolic 105–143; BP diastolic 49–86
[2021-10-20] MEDS: BLOOD SUGAR DIAGNOSTIC STRIP TEST SCH ×5 (00:12→23:31)
[2021-10-20] MEDS: ALBUTEROL 6.7GM HFA INHALER INH SCH ×7 (00:14→20:46)
[2021-10-20] MEDS: INSULIN LISPRO 100 UNITS/ML SUBCUT SCH ×5 (00:34→23:31)
[2021-10-20] MEDS: DOXYCYCLINE 100 MG in DEXT 5% WATER 100 ML IV SCH ×2 (05:02→17:12)
[2021-10-20 05:39] LABS: HEMATOCRIT. 31.3 % (42.0-52.0); HEMOGLOBIN. 10.3 g/dL (14.0-18.0); MEAN CORPUSCULAR HEMOGLOBIN 30.4 pg (28.0-32.0); MEAN CORPUSCULAR VOLUME 92.4 fL (80.0-94.0); PLATELET 108 x1000/uL (130-400); RED BLOOD CELL COUNT 3.39 mill/uL (4.7-6.1); RED CELL DISTRIBUTION WIDTH 14.3 % (11.6-14.6)
[2021-10-20] MEDS: FERROUS SULFATE 325MG TABLET PO SCH (06:37)
[2021-10-20 07:12] LABS: PLATELET ESTIMATE DECREASED
[2021-10-20] MEDS: FAMOTIDINE 20MG/2ML VIAL IV SCH (09:08)
[2021-10-20] MEDS: DEXAMETHASONE 10 MG/ML VIAL IV SCH (09:09)
[2021-10-20] MEDS: ASCORBIC ACID 500 MG TABLET PO SCH ×2 (09:09→20:13)
[2021-10-20] MEDS: THIAMINE HCL 100MG TABLET PO SCH (09:09)
[2021-10-20] MEDS: CHOLECALCIFEROL (D3) 1000 UNIT TABLET PO SCH (09:09)
[2021-10-20] MEDS: QUETIAPINE FUMARATE 50MG TABLET PO SCH ×2 (09:09→16:16)
[2021-10-20] MEDS: ZINC SULFATE 220 MG ( 50 ) CAPSULE PO SCH (09:09)
[2021-10-20] MEDS: ASPIRIN 81MG EC TABLET PO SCH (09:09)
[2021-10-20] MEDS: ENOXAPARIN 100MG/ML SYR SUBCUT SCH (13:30)
[2021-10-20] MEDS: MEROPENEM 1,000 MG in SODIUM CHLORIDE 0.9% 100 ML IV SCH (13:30)
[2021-10-21] VITALS (57 sets, daily range): BP systolic 63–158; BP diastolic 34–108
[2021-10-21] MEDS: ALBUTEROL 6.7GM HFA INHALER INH SCH ×7 (00:18→23:28)
[2021-10-21] MEDS: INSULIN LISPRO 100 UNITS/ML SUBCUT SCH ×4 (05:43→23:28)
[2021-10-21] MEDS: DOXYCYCLINE 100 MG in DEXT 5% WATER 100 ML IV SCH ×2 (05:43→17:13)
[2021-10-21] MEDS: BLOOD SUGAR DIAGNOSTIC STRIP TEST SCH ×4 (05:43→23:28)
[2021-10-21 05:47] LABS: HEMATOCRIT. 31.8 % (42.0-52.0); HEMOGLOBIN. 10.4 g/dL (14.0-18.0); MEAN CORPUSCULAR HEMOGLOBIN 30.3 pg (28.0-32.0); MEAN CORPUSCULAR VOLUME 92.5 fL (80.0-94.0); MEAN PLATELET VOLUME 10.8 fl (7.4-10.4); PLATELET 120 x1000/uL (130-400); RED BLOOD CELL COUNT 3.44 mill/uL (4.7-6.1); RED CELL DISTRIBUTION WIDTH 14.8 % (11.6-14.6)
[2021-10-21] MEDS: FERROUS SULFATE 325MG TABLET PO SCH (06:00)
[2021-10-21 07:43] LABS: PLATELET ESTIMATE SLIGHTLY DECREASED
[2021-10-21] MEDS: ASPIRIN 81MG EC TABLET PO SCH (08:44)
[2021-10-21] MEDS: QUETIAPINE FUMARATE 50MG TABLET PO SCH (08:44)
[2021-10-21] MEDS: DEXAMETHASONE 10 MG/ML VIAL IV SCH (08:44)
[2021-10-21] MEDS: ASCORBIC ACID 500 MG TABLET PO SCH ×2 (08:44→20:29)
[2021-10-21] MEDS: ZINC SULFATE 220 MG ( 50 ) CAPSULE PO SCH (08:44)
[2021-10-21] MEDS: CHOLECALCIFEROL (D3) 1000 UNIT TABLET PO SCH (08:44)
[2021-10-21] MEDS: THIAMINE HCL 100MG TABLET PO SCH (08:44)
[2021-10-21] MEDS: FAMOTIDINE 20MG/2ML VIAL IV SCH (08:46)
[2021-10-21 13:10] LABS: ANTI-MYELOPEROXIDASE AB < 9.0 U/mL (0.0-9.0); ANTI-PROTEINASE 3 ABS < 3.5 U/mL (0.0-3.5)
[2021-10-21] MEDS: MEROPENEM 1,000 MG in SODIUM CHLORIDE 0.9% 100 ML IV SCH (14:17)
[2021-10-21] MEDS: ENOXAPARIN 100MG/ML SYR SUBCUT SCH (14:18)
[2021-10-21] MEDS ORDERED: QUETIAPINE FUMARATE 50MG TABLET PO SCH (17:00)
[2021-10-21] MEDS ORDERED: AMLODIPINE 2.5MG TABLET PO SCH (21:00)
[2021-10-21] MEDS: NOREPINEPHRINE 32 MG in DEXT 5% WATER 218 ML IV PRN (22:38)
[2021-10-22] VITALS (23 sets, daily range): BP systolic 80–113; BP diastolic 41–76
[2021-10-22] MEDS: ALBUTEROL 6.7GM HFA INHALER INH SCH (04:00)
[2021-10-22] MEDS: PHENYLEPHRINE 100 MG in DEXT 5% WATER 240 ML IV PRN (04:07)
[2021-10-22] MEDS: VASOPRESSIN 20 UNITS in SODIUM CHLORIDE 0.9% 100 ML IV PRN (04:30)
[2021-10-22 05:37] LABS: HEMATOCRIT. 22.2 % (42.0-52.0); MEAN CORPUSCULAR HEMOGLOBIN 29.6 pg (28.0-32.0); MEAN CORPUSCULAR VOLUME 108.7 fL (80.0-94.0); MEAN PLATELET VOLUME 11.4 fl (7.4-10.4); PLATELET 156 x1000/uL (130-400); RED BLOOD CELL COUNT 2.05 mill/uL (4.7-6.1); RED CELL DISTRIBUTION WIDTH 17.9 % (11.6-14.6)
[2021-10-22 05:55] LABS: HEMOGLOBIN. 6.1 g/dL (14.0-18.0)
[2021-10-22 09:05] LABS: PLATELET ESTIMATE NORMAL
[2021-10-22] MEDS ORDERED: EPINEPHRINE 0.1MG/ML (1:10,000) 10ML SYR ONE (09:20)
[2021-10-22] MEDS ORDERED: SODIUM BICARBONATE 8.4% 1 MEQ/ML 50ML SYR IV ONE (09:20)
[2021-10-22] MEDS ORDERED: CALCIUM CHLORIDE 1GM/10ML SYR IV ONE (09:20)
== END 2021-10-22 05:06 | DRG 870 ==
LOC: ER 12:11 → MICUNO 16:33 → EDBEDREQ 16:49 → EDBEDREQTM 16:49 → EDBEDREQ 18:59 → EDBEDREQSVC 18:59 → ENRESERV 22:44 → MICUSO 10-13 00:50 → MICUNO 10-17 16:29 → MICUSO 10-20 22:02
PROVIDERS: ADMIT Internal Medicine Nephrology; ATTEND Internal Medicine Nephrology
PROC: 0BH17EZ Insertion of Endotracheal Airway into Trachea, Via Natural or Artificial Opening (ICD-10-PCS; principal; 2021-10-12)
PROC: 5A1955Z Respiratory Ventilation, Greater than 96 Consecutive Hours (ICD-10-PCS; 2021-10-12)
PROC: 02HV33Z Insertion of Infusion Device into Superior Vena Cava, Percutaneous Approach (ICD-10-PCS; 2021-10-12)
PROC: B548ZZA Ultrasonography of Superior Vena Cava, Guidance (ICD-10-PCS; 2021-10-12)
PROC: 5A1D70Z Performance of Urinary Filtration, Intermittent, Less than 6 Hours Per Day (ICD-10-PCS; 2021-10-13)
PROC: 05HM33Z Insertion of Infusion Device into Right Internal Jugular Vein, Percutaneous Approach (ICD-10-PCS; 2021-10-13)
PROC: B543ZZA Ultrasonography of Right Jugular Veins, Guidance (ICD-10-PCS; 2021-10-13)
PROC: 5A1D70Z Performance of Urinary Filtration, Intermittent, Less than 6 Hours Per Day (ICD-10-PCS; 2021-10-15)
PROC: 5A1D70Z Performance of Urinary Filtration, Intermittent, Less than 6 Hours Per Day (ICD-10-PCS; 2021-10-16)
PROC: 5A1D70Z Performance of Urinary Filtration, Intermittent, Less than 6 Hours Per Day (ICD-10-PCS; 2021-10-18)
PROC: 5A1D70Z Performance of Urinary Filtration, Intermittent, Less than 6 Hours Per Day (ICD-10-PCS; 2021-10-20)
PROC: 5A09357 Assistance with Respiratory Ventilation, Less than 24 Consecutive Hours, Continuous Positive Airway Pressure (ICD-10-PCS; 2021-10-22)
PROC: 5A12012 Performance of Cardiac Output, Single, Manual (ICD-10-PCS; 2021-10-22)
DX: A41.89 Other specified sepsis (principal); U07.1 COVID-19; J12.82 Pneumonia due to coronavirus disease 2019; J96.01 Acute respiratory failure with hypoxia; N17.0 Acute kidney failure with tubular necrosis; R65.21 Severe sepsis with septic shock; I21.4 Non-ST elevation (NSTEMI) myocardial infarction; G92.8 Other toxic encephalopathy; E87.1 Hypo-osmolality and hyponatremia; M62.82 Rhabdomyolysis; E87.2 Acidosis; I31.3 Pericardial effusion (noninflammatory); Z99.11 Dependence on respirator [ventilator] status; D63.8 Anemia in other chronic diseases classified elsewhere; E86.1 Hypovolemia; E87.5 Hyperkalemia; I08.1 Rheumatic disorders of both mitral and tricuspid valves; I11.9 Hypertensive heart disease without heart failure; I27.20 Pulmonary hypertension, unspecified; I48.91 Unspecified atrial fibrillation; I49.1 Atrial premature depolarization; L40.0 Psoriasis vulgaris; Z79.82 Long term (current) use of aspirin; Z79.899 Other long term (current) drug therapy; Z99.2 Dependence on renal dialysis; E87.8 Other disorders of electrolyte and fluid balance, not elsewhere classified; R74.01 Elevation of levels of liver transaminase levels; R73.9 Hyperglycemia, unspecified; I46.9 Cardiac arrest, cause unspecified
CPT/HCPCS: 31500; 36415; 36556; 36573; 36600; 71045; 71250; 74176; 76700; 76937; 78580; 80048; 80053; 80076; 80202; 80305; 80320; 81003; 82270; 82375; 82550; 82553; 82570; 82728; 82805; 82962; 83036; 83520; 83605; 83615; 83735; 83880; 84100; 84145; 84300; 84443; 84478; 84484; 85025; 85379; 86022; 86038; 86140; 86147; 86160; 86225; 86256; 86431; 86480; 86705; 86709; 86803; 87070; 87340; 87426; 92610; 92950; 93005; 93306; 93970; 94003; 94640; 94660; 97162; 99291; C1725; C1752; C9803; J0282; J0456; J0610; J0692; J0696; J1100; J1160; J1650; J1815; J2060; J2185; J2250; J2270; J2370; J2543; J2704; J3010; J3370; J3475; J3490; J7030; J7050; J7060; J7070; U0003; U0005; G0480